=== PATIENT | male | born 1975 | race African-American/Black ===

== ENCOUNTER 2020-02-28 16:34 | Emergency (ER) | payer MEDICAID ==
[~2020-02-28] VITALS: Ht 177.8 cm; Wt 73.0 kg
[~2020-02-28 16:34] MED LIST: DILANTIN; PHENOBARBITAL
[2020-02-28 16:37] VITALS: BP 113/72
[2020-02-28] MEDS ORDERED: ACETAMINOPHEN 325MG TABLET PO ONE (17:00)
[2020-02-28] MEDS ORDERED: BACITRACIN ZINC OINT UDPKT TOP ONE (17:45)
[2020-02-28] MEDS ORDERED: IBUPROFEN 600MG TABLET PO ONE (17:45)
== END 2020-02-28 18:49 | disposition home or self-care (01) ==
LOC: ER 16:34
DX: S00.81XA Abrasion of other part of head, initial encounter (principal); Y08.89XA Assault by other specified means, initial encounter; Y93.89 Activity, other specified; Y92.89 Other specified places as the place of occurrence of the external cause; Y99.8 Other external cause status; F10.229 Alcohol dependence with intoxication, unspecified; Y90.0 Blood alcohol level of less than 20 mg/100 ml; F14.10 Cocaine abuse, uncomplicated
CPT/HCPCS: 70486; 99285

== ENCOUNTER 2020-02-29 12:02 | Emergency (ER) | payer MEDICAID ==
[~2020-02-29] VITALS: Ht 180.3 cm; Wt 75.0 kg
[2020-02-29 12:39] LABS: BASOPHILS % 0.7 % (0.0-2.0); EOSINOPHILS % 1.6 % (0.0-5.0); HEMATOCRIT. 40.7 % (42.0-52.0); HEMOGLOBIN. 13.5 g/dL (14.0-18.0); LYMPHOCYTES % 21.5 % (20.0-50.0); MEAN CORPUSCULAR HEMOGLOBIN 29.9 pg (28.0-32.0); MEAN CORPUSCULAR VOLUME 90.3 fL (80.0-94.0); MEAN PLATELET VOLUME 6.1 fl (7.4-10.4); MONOCYTES % 12.9 % (2.0-8.0); NEUTROPHILS % 63.3 % (40.0-76.0); PLATELET 276 x1000/uL (130-400); RED CELL DISTRIBUTION WIDTH 15.9 % (11.6-14.6)
[2020-02-29 12:42] LABS: CHLORIDE 110 mEq/L (98-107)
[2020-02-29 12:43] LABS: PROTHROMBIN TIME 10.5 sec (9.6-11.0)
[2020-02-29 12:46] LABS: ETHANOL BLOOD < 10 mg/dL
[2020-02-29 12:51] LABS: CLARITY URINE CLEAR (CLEAR); COLOR URINE YELLOW (YELLOW); KETONES URINE TRACE (NEGATIVE); LEUKOCYTE ESTERASE URINE TRACE (NEGATIVE); NITRITE URINE NEGATIVE (NEGATIVE); OCCULT BLOOD URINE NEGATIVE (NEGATIVE); PROTEIN URINE TRACE (NEGATIVE); SPECIFIC GRAVITY URINE 1.026 (1.005-1.030)
[2020-02-29 13:05] LABS: *BARBITURATES SCREEN URINE NEGATIVE (NEGATIVE)
[2020-02-29 13:06] LABS: *BENZODIAZEPINES SCREEN URINE NEGATIVE (NEGATIVE); *COCAINE SCREEN URINE NEGATIVE (NEGATIVE); CANNABINOID URINE SCREEN NEGATIVE (NEGATIVE); METHADONE URINE SCREEN NEGATIVE (NEGATIVE); OPIATES URINE SCREEN NEGATIVE (NEGATIVE)
[2020-02-29 13:07] LABS: *AMPHETAMINES SCREEN URINE NEGATIVE (NEGATIVE); PHENCYCLIDINE URINE SCREEN NEGATIVE (NEGATIVE)
[2020-02-29] MEDS: POTASSIUM CHLORIDE 20MEQ TABLET SR PO ONE ×2 (13:22→14:07)
[2020-02-29] MEDS ORDERED: SODIUM CHLORIDE 0.9% 1,000 ML IV ONE (16:15)
[2020-03-01 00:10] VITALS: BP 110/60
== END 2020-03-01 00:11 | disposition home or self-care (01) ==
LOC: ER 12:02
DX: G40.909 Epilepsy, unspecified, not intractable, without status epilepticus (principal); R41.0 Disorientation, unspecified; R53.1 Weakness; F10.20 Alcohol dependence, uncomplicated; Y90.0 Blood alcohol level of less than 20 mg/100 ml
CPT/HCPCS: 36415; 70450; 80053; 80305; 80320; 81003; 85025; 85610; 93005; 96360; 99285; J7030; G0480

== ENCOUNTER 2020-03-01 07:49 | Emergency (ER) | payer MEDICAID ==
[~2020-03-01] VITALS: Ht 165.1 cm; Wt 60.0 kg
[2020-03-01] MEDS ORDERED: ACETAMINOPHEN 325MG TABLET PO ONE (09:00)
[2020-03-01 09:23] VITALS: BP 120/75
== END 2020-03-01 09:50 | disposition left against medical advice (07) ==
LOC: ER 07:49
DX: S00.12XA Contusion of left eyelid and periocular area, initial encounter (principal); X58.XXXA Exposure to other specified factors, initial encounter; Y93.89 Activity, other specified; Y92.89 Other specified places as the place of occurrence of the external cause; Y99.8 Other external cause status
CPT/HCPCS: 99282